=== PATIENT | male | born 1960 | race Caucasian/White ===

== ENCOUNTER 2019-08-20 10:57 | Inpatient (IN) | payer MEDICAID ==
[~2019-08-20] VITALS: Ht 170.2 cm; Wt 81.8 kg
[~2019-08-20 10:57] MED LIST: ASPI-1265 PO; ATOR40TA PO; BACL20TA PO; GABA-532 PO; HYDR-4383 PO; ISOS30TA9 PO; METO25TA6 PO; NABU500T2 PO; NAPR-1154 PO; NITR0.4T SL; TICA90TA PO; TRAM50TA2 PO
[2019-08-20 11:35] LABS: BASOPHILS % (AUTO) 0.4 % (0-1); EOSINOPHILS % (AUTO) 0.1 % (0-6); HEMATOCRIT 46.2 % (42.0-52.0); HEMOGLOBIN 15.3 g/dl (14.0-17.9); LYMPHOCYTES # (AUTO) 1.1 X10'3 (1.1-4.8); LYMPHOCYTES % (AUTO) 10.9 % (21-51); MEAN CORPUSCULAR HEMOGLOBIN 30.4 PG (27.0-31.0); MEAN CORPUSCULAR HGB CONC 33.2 g/dL (33.0-36.5); MEAN CORPUSCULAR VOLUME 91.6 FL (78-98); MEAN PLATELET VOLUME 8.9 FL (7.4-10.4); MONOCYTES # (AUTO) 0.5 X10'3 (0-0.9); NEUTROPHILS # (AUTO) 8.2 X10'3 (1.8-7.7); NEUTROPHILS % (AUTO) 83.6 % (42-75); PLATELET COUNT 313 X10'3 (140-440); RED BLOOD COUNT 5.05 X10'6 (4.70-6.10); RED CELL DISTRIBUTION WIDTH 15.2 % (11.5-14.5); WHITE BLOOD COUNT 9.8 X10'3 (4.5-11.0)
[2019-08-20 11:56] LABS: PARTIAL THROMBOPLASTIN TIME 25 SECONDS (22-32)
[2019-08-20 12:00] LABS: ALANINE AMINOTRANSFERASE 56 U/L (12-78); ALBUMIN 3.9 G/DL (3.4-5.0); ALKALINE PHOSPHATASE 84 IU/L (46-116); ANION GAP 8 (8-16); ASPARTATE AMINO TRANSFERASE 32 U/L (10-37); BILIRUBIN,TOTAL 2.2 MG/DL (0.1-1.0); BLOOD UREA NITROGEN 17 MG/DL (7-18); BUN/CREATININE RATIO 8.5 (5.4-32.0); CHLORIDE 103 MMOL/L (99-107); CREATININE 1.99 MG/DL (0.60-1.10); GLUCOSE 94 MG/DL (70-104); POTASSIUM 4.5 MMOL/L (3.5-5.1); SODIUM 136 MMOL/L (135-145); TOTAL CARBON DIOXIDE 25.2 MMOL/L (24-32); TOTAL PROTEIN 7.8 G/DL (6.4-8.2); eGFR 35 ML/MIN
[2019-08-20] MEDS ORDERED: normal saline 1000ML IV soln IVB ONE ×2 (13:00→13:20)
--- NOTE | 2019-08-20 13:19 | NUR ---
covering for assisgned nurse .pt iv started infusing as per md orders.dr motley at bedside explaining the plan of care.pt denies any concern at this time.
[2019-08-20] MEDS ORDERED: CLOP75TA35 PO (13:45)
[2019-08-20] MEDS ORDERED: LEVA15HF6 INH (13:45)
[2019-08-20] MEDS ORDERED: LORA-660 PO (13:45)
[2019-08-20] MEDS ORDERED: ACET-1008 PO (13:47)
[2019-08-20] MEDS ORDERED: normal saline 1000ml 1,000 ML IV SCH (13:58)
[2019-08-20] MEDS ORDERED: mag hydrox/Alum hydrox/simeth 30ml oral suspension PO PRN (14:00)
[2019-08-20] MEDS ORDERED: magnesium Cl slow-release 64mg tablet PO PRN (14:00)
[2019-08-20] MEDS ORDERED: morphine 2 MG/ML inj. syringe IV PRN ×2 (14:00)
[2019-08-20] MEDS ORDERED: diphenhydrAMINE 25mg capsule PO PRN (14:00)
[2019-08-20] MEDS ORDERED: magnesium 4gm in 100ml NS 100 ML IV PRN (14:00)
[2019-08-20] MEDS ORDERED: HYDROcodone/acetaminophen 10/325mg tab PO PRN (14:00)
[2019-08-20] MEDS ORDERED: acetaminophen 325mg tablet PO PRN ×2 (14:00)
[2019-08-20] MEDS ORDERED: ondansetron/PF 4mg/2ml inj IV PRN (14:00)
[2019-08-20] MEDS ORDERED: acetaminophen 650mg rectal suppository RC PRN (14:00)
[2019-08-20] MEDS ORDERED: HYDROcodone/acetaminophen 5mg/325mg tablet PO PRN (14:00)
[2019-08-20] MEDS ORDERED: magnesium 2GM in 50ml NS 50 ML IV PRN (14:00)
[2019-08-20] MEDS ORDERED: magnesium hydroxide 30ml (MOM) UD suspension PO PRN (14:00)
[2019-08-20] MEDS ORDERED: potassium Cl 20 mEq SR tablet PO PRN ×2 (14:00)
[2019-08-20] MEDS ORDERED: potassium CL 10mEq/100ml bag 100 ML IV PRN ×2 (14:00)
[2019-08-20] MEDS ORDERED: bisacodyl 10mg suppository rectal RC PRN (14:00)
--- NOTE | 2019-08-20 14:23 | NUR ---
pt came back from ct scan ,assisned nurse was busy with other pt .pt iv fluid started infusing as per md orders.
--- NOTE | 2019-08-20 15:45 | NUR ---
PT TO MRI
--- NOTE | 2019-08-20 16:43 | NUR ---
back from mri
--- NOTE | 2019-08-20 17:15 | NUR ---
PT BACK FROM MRI
[2019-08-20] MEDS ORDERED: heparin, porcine 5000 units/ml vial SQ SCH (20:00)
[2019-08-20] MEDS ORDERED: K and/or MAG REPLACEMENT MC SCH (20:00)
[2019-08-20] MEDS ORDERED: metoprolol tartrate 25mg tablet PO SCH (20:00)
[2019-08-20] MEDS ORDERED: AMIT75TA2 PO (20:50)
[2019-08-20] MEDS ORDERED: amitriptyline 25mg tablet PO ONE ×2 (20:55)
[2019-08-20] MEDS ORDERED: atorvastatin 20mg tablet PO ONE (20:55)
[2019-08-20] MEDS ORDERED: metoprolol tartrate 50mg tablet PO ONE (20:55)
[2019-08-20 23:42] VITALS: BP 131/90
[2019-08-21] MEDS ORDERED: clopidogrel 75mg tablet PO SCH (08:00)
[2019-08-21] MEDS ORDERED: loratadine 10mg tablet PO SCH (08:00)
[2019-08-21] MEDS ORDERED: aspirin 81mg tab.chew PO SCH (08:00)
[2019-08-21] MEDS ORDERED: isosorbide dinitrate 30mg tablet PO SCH (08:00)
[2019-08-21] MEDS ORDERED: atorvastatin 20mg tablet PO SCH (08:00)
== END 2019-08-21 00:50 | disposition short-term general hospital (02) | DRG 204 ==
LOC: ER 10:58 → ED HOLD 13:58 → UNDOADMIN 13:58 → ED HOLD 14:03 → UNDODISIN 08-21 00:50
PROVIDERS: ADMIT Family Medicine; ATTEND Family Medicine
DX: R55 Syncope and collapse (principal); G89.29 Other chronic pain; I25.10 Atherosclerotic heart disease of native coronary artery without angina pectoris; I25.2 Old myocardial infarction; J44.9 Chronic obstructive pulmonary disease, unspecified; Z95.5 Presence of coronary angioplasty implant and graft; M54.9 Dorsalgia, unspecified
CPT/HCPCS: 36415; 70450; 70544; 70547; 70551; 71045; 80053; 83036; 84484; 85025; 85610; 85730; 87635; 93005; 96360; 99285; G0378; J7030

== ENCOUNTER 2019-10-04 11:45 | Emergency (ER) | payer MEDICAID ==
[~2019-10-04] VITALS: Ht 170.2 cm; Wt 86.0 kg
[~2019-10-04 11:45] MED LIST changes: +ACET-1008 PO; +AMIT75TA2 PO; -BACL20TA PO; +CLOP75TA35 PO; -GABA-532 PO; -HYDR-4383 PO; +LEVA15HF6 INH; +LORA-660 PO; -NABU500T2 PO; -NAPR-1154 PO; -NITR0.4T SL; -TICA90TA PO; -TRAM50TA2 PO
[2019-10-04 12:16] VITALS: BP 127/75
[2019-10-04 14:35] LABS: BASOPHILS % (AUTO) 0.4 % (0-1); EOSINOPHILS # (AUTO) 0.2 X10'3 (0-0.9); EOSINOPHILS % (AUTO) 2.1 % (0-6); HEMATOCRIT 36.2 % (42.0-52.0); HEMOGLOBIN 11.9 g/dl (14.0-17.9); LYMPHOCYTES # (AUTO) 1.2 X10'3 (1.1-4.8); LYMPHOCYTES % (AUTO) 15.6 % (21-51); MEAN CORPUSCULAR HEMOGLOBIN 29.4 PG (27.0-31.0); MEAN CORPUSCULAR HGB CONC 32.7 g/dL (33.0-36.5); MEAN CORPUSCULAR VOLUME 89.8 FL (78-98); MEAN PLATELET VOLUME 9.1 FL (7.4-10.4); MONOCYTES # (AUTO) 0.5 X10'3 (0-0.9); MONOCYTES % (AUTO) 6.9 % (2-12); NEUTROPHILS # (AUTO) 5.9 X10'3 (1.8-7.7); PLATELET COUNT 285 X10'3 (140-440); RED BLOOD COUNT 4.03 X10'6 (4.70-6.10); RED CELL DISTRIBUTION WIDTH 16.2 % (11.5-14.5); WHITE BLOOD COUNT 7.8 X10'3 (4.5-11.0)
[2019-10-04 14:48] LABS: ALANINE AMINOTRANSFERASE 26 U/L (12-78); ALBUMIN 3.4 G/DL (3.4-5.0); ALBUMIN/GLOBULIN RATIO 0.9 (1.1-1.5); ALKALINE PHOSPHATASE 84 IU/L (46-116); ANION GAP 13 (8-16); ASPARTATE AMINO TRANSFERASE 20 U/L (10-37); BLOOD UREA NITROGEN 13 MG/DL (7-18); BUN/CREATININE RATIO 17.1 (5.4-32.0); CALCIUM 8.6 MG/DL (8.5-10.1); CHLORIDE 107 MMOL/L (99-107); CREATININE 0.76 MG/DL (0.60-1.10); GLUCOSE 92 MG/DL (70-104); POTASSIUM 3.9 MMOL/L (3.5-5.1); SODIUM 142 MMOL/L (135-145); TOTAL CARBON DIOXIDE 22.3 MMOL/L (24-32); TOTAL PROTEIN 7.2 G/DL (6.4-8.2); eGFR > 90 ML/MIN
[2019-10-04 15:13] LABS: C-REACTIVE PROTEIN 1.71 MG/DL (0.0-0.5)
[2019-10-04] MEDS ORDERED: HYDR-3965 PO (16:02)
== END 2019-10-04 17:01 | disposition home or self-care (01) ==
LOC: ER 11:46
DX: R22.0 Localized swelling, mass and lump, head (principal); R51 Headache; I25.10 Atherosclerotic heart disease of native coronary artery without angina pectoris; I25.2 Old myocardial infarction; J44.9 Chronic obstructive pulmonary disease, unspecified; G89.29 Other chronic pain; Z98.890 Other specified postprocedural states; Z79.82 Long term (current) use of aspirin; Z79.899 Other long term (current) drug therapy
CPT/HCPCS: 36415; 70450; 80053; 85025; 85651; 86140; 99284

== ENCOUNTER 2020-03-19 11:47 | Inpatient (IN) | payer MEDICAID ==
[~2020-03-19] VITALS: Ht 170.2 cm; Wt 81.8 kg
[~2020-03-19 11:47] MED LIST changes: +LORA-657 PO; -LORA-660 PO
[2020-03-19] MEDS ORDERED: aspirin 81mg tab.chew PO ONE (12:25)
[2020-03-19 12:52] LABS: BASOPHILS # (AUTO) 0.1 X10'3 (0-0.2); BASOPHILS % (AUTO) 0.5 % (0-1); EOSINOPHILS % (AUTO) 0.1 % (0-6); HEMATOCRIT 47.2 % (42.0-52.0); HEMOGLOBIN 15.5 g/dl (14.0-17.9); LYMPHOCYTES # (AUTO) 0.8 X10'3 (1.1-4.8); LYMPHOCYTES % (AUTO) 7.6 % (21-51); MEAN CORPUSCULAR HEMOGLOBIN 29.9 PG (27.0-31.0); MEAN CORPUSCULAR HGB CONC 32.9 g/dL (33.0-36.5); MEAN CORPUSCULAR VOLUME 90.8 FL (78-98); MEAN PLATELET VOLUME 9.6 FL (7.4-10.4); MONOCYTES # (AUTO) 0.9 X10'3 (0-0.9); MONOCYTES % (AUTO) 8.1 % (2-12); NEUTROPHILS # (AUTO) 9.2 X10'3 (1.8-7.7); NEUTROPHILS % (AUTO) 83.7 % (42-75); PLATELET COUNT 254 X10'3 (140-440); RED CELL DISTRIBUTION WIDTH 16.1 % (11.5-14.5)
[2020-03-19 13:01] LABS: PARTIAL THROMBOPLASTIN TIME 24 SECONDS (22-32)
[2020-03-19 13:04] LABS: ALANINE AMINOTRANSFERASE 26 U/L (12-78); ALBUMIN 4.1 G/DL (3.4-5.0); ALKALINE PHOSPHATASE 96 IU/L (46-116); ANION GAP 11 (8-16); ASPARTATE AMINO TRANSFERASE 25 U/L (10-37); BILIRUBIN,TOTAL 1.6 MG/DL (0.1-1.0); BLOOD UREA NITROGEN 21 MG/DL (7-18); BUN/CREATININE RATIO 11.1 (5.4-32.0); CALCIUM 9.2 MG/DL (8.5-10.1); CHLORIDE 104 MMOL/L (99-107); GLUCOSE 70 MG/DL (70-104); POTASSIUM 4.5 MMOL/L (3.5-5.1); SODIUM 140 MMOL/L (135-145); TOTAL PROTEIN 8.1 G/DL (6.4-8.2); eGFR 36 ML/MIN
[2020-03-19 13:12] LABS: MAGNESIUM 2.4 MG/DL (1.5-2.4)
[2020-03-19] MEDS ORDERED: aspirin 325mg tablet PO ONE (13:55)
[2020-03-19] MEDS ORDERED: magnesium 4gm in 100ml NS 100 ML IV PRN (14:10)
[2020-03-19] MEDS ORDERED: ondansetron/PF 4mg/2ml inj IV PRN (14:10)
[2020-03-19] MEDS ORDERED: potassium Cl 20 mEq SR tablet PO PRN ×2 (14:10)
[2020-03-19] MEDS ORDERED: morphine 2 MG/ML inj. syringe IV PRN (14:10)
[2020-03-19] MEDS ORDERED: magnesium 2GM in 50ml NS 50 ML IV PRN (14:10)
[2020-03-19] MEDS ORDERED: potassium CL 10mEq/100ml bag 100 ML IV PRN ×2 (14:10)
[2020-03-19] MEDS ORDERED: magnesium Cl slow-release 64mg tablet PO PRN (14:10)
[2020-03-19] MEDS ORDERED: HYDROcodone/acetaminophen 5mg/325mg tablet PO PRN (14:10)
[2020-03-19] MEDS ORDERED: acetaminophen 325mg tablet PO PRN ×2 (14:10)
[2020-03-19] MEDS: normal saline 1000ml 1,000 ML IV SCH (14:55)
[2020-03-19 15:38] LABS: URINE AMPHETAMINE SCREEN NEGATIVE (Neg); URINE BARBITUATE SCREEN NEGATIVE (Neg); URINE BENZODIAZEPINES SCREEN NEGATIVE (Neg); URINE CANNABINOID SCREEN NEGATIVE (Neg); URINE COCAINE SCREEN NEGATIVE (Neg); URINE METHADONE SCREEN NEGATIVE (Neg); URINE OPIATE SCREEN NEGATIVE (Neg); URINE PHENCYCLIDINE SCREEN NEGATIVE (Neg)
[2020-03-19] MEDS ORDERED: LISI10TA4 PO (15:41)
--- NOTE | 2020-03-19 15:54 | NUR ---
attempted to call report, EHSAN Clancy off floor.
--- NOTE | 2020-03-19 16:16 | NUR ---
Patient in room PCU 3028. I have received report from EHSAN KUMARI FROM ER and had the opportunity to ask questions and assume patient care.
[2020-03-19 18:00] VITALS: BP 123/71
--- NOTE | 2020-03-19 18:20 | NUR ---
Problems reprioritized. Patient report given, questions answered & plan of care reviewed with EHSAN CHEUNG.
[2020-03-19] MEDS: K and/or MAG REPLACEMENT MC SCH (19:20)
[2020-03-19] MEDS: heparin, porcine 5000 units/ml vial SQ SCH (19:25)
[2020-03-19] MEDS: docusate sod 100mg capsule PO SCH (19:28)
[2020-03-19 20:00] VITALS: BP_SYST 105; BP_SYST 88; BP_SYST 90; BP_DIAS 56; BP_DIAS 61; BP_DIAS 64
[2020-03-19 22:00] VITALS: BP 105/64
[2020-03-20] VITALS (14 sets, daily range): BP systolic 100–128; BP diastolic 55–80
[2020-03-20] MEDS: normal saline 1000ml 1,000 ML IV SCH (04:28)
[2020-03-20 06:31] LABS: HEMATOCRIT 39.4 % (42.0-52.0); HEMOGLOBIN 13.4 g/dl (14.0-17.9); MEAN CORPUSCULAR HEMOGLOBIN 30.8 PG (27.0-31.0); MEAN CORPUSCULAR HGB CONC 34.1 g/dL (33.0-36.5); MEAN CORPUSCULAR VOLUME 90.3 FL (78-98); MEAN PLATELET VOLUME 9.9 FL (7.4-10.4); PLATELET COUNT 215 X10'3 (140-440); RED BLOOD COUNT 4.36 X10'6 (4.70-6.10); RED CELL DISTRIBUTION WIDTH 15.8 % (11.5-14.5); WHITE BLOOD COUNT 6.6 X10'3 (4.5-11.0)
--- NOTE | 2020-03-20 06:33 | NUR ---
Problems reprioritized. Patient report given, questions answered & plan of care reviewed with EHSAN Hernandes.
[2020-03-20 06:36] LABS: ALANINE AMINOTRANSFERASE 21 U/L (12-78); ALBUMIN/GLOBULIN RATIO 0.9 (1.1-1.5); ALKALINE PHOSPHATASE 78 IU/L (46-116); ANION GAP 7 (8-16); ASPARTATE AMINO TRANSFERASE 17 U/L (10-37); BILIRUBIN,TOTAL 0.6 MG/DL (0.1-1.0); BLOOD UREA NITROGEN 31 MG/DL (7-18); BUN/CREATININE RATIO 26.1 (5.4-32.0); CALCIUM 8.4 MG/DL (8.5-10.1); CHLORIDE 110 MMOL/L (99-107); CHOL/HDL RATIO 3.5 (0.00-4.99); CHOLESTEROL 133 MG/DL (0-200); CREATININE 1.19 MG/DL (0.60-1.10); GLUCOSE 88 MG/DL (70-104); HDL CHOLESTEROL 38 MG/DL (35-60); LDL CHOLESTEROL 75 MG/DL (50-100); MAGNESIUM 1.9 MG/DL (1.5-2.4); SODIUM 144 MMOL/L (135-145); TOTAL CARBON DIOXIDE 27.2 MMOL/L (24-32); TOTAL PROTEIN 6.3 G/DL (6.4-8.2); TRIGLYCERIDES 96 MG/DL (20-135); eGFR 62 ML/MIN
[2020-03-20] MEDS: docusate sod 100mg capsule PO SCH (08:00)
[2020-03-20] MEDS: K and/or MAG REPLACEMENT MC SCH (08:00)
[2020-03-20] MEDS: heparin, porcine 5000 units/ml vial SQ SCH (10:26)
[2020-03-20] MEDS ORDERED: regadenoson 0.4mg/5ml syringe IV ONE (13:45)
[2020-03-20] MEDS ORDERED: aminophylline inj. 10 ML IV ONE (13:48)
[2020-03-20] MEDS ORDERED: regadenoson 0.4mg/5ml syringe IV PRN (13:50)
--- NOTE | 2020-03-20 15:20 | NUR ---
PAGER ID: [phone] MESSAGE: [id number] [place] stress test done, can I feed him? ambulatory in room [address]
[2020-03-20] MEDS ORDERED: OMEP20CA15 PO (15:42)
== END 2020-03-20 17:27 | disposition home or self-care (01) | DRG 422 ==
LOC: ER 11:47 → ED HOLD 14:10 → EDBEDREQ 15:29 → PCU 3S 16:40
PROVIDERS: ADMIT Internal Medicine; ATTEND Internal Medicine
PROC: 4A02XM4 Measurement of Cardiac Total Activity, External Approach (ICD-10-PCS; principal; 2020-03-20)
PROC: 3E033HZ Introduction of Radioactive Substance into Peripheral Vein, Percutaneous Approach (ICD-10-PCS; 2020-03-20)
DX: E86.0 Dehydration (principal); R07.89 Other chest pain; F17.210 Nicotine dependence, cigarettes, uncomplicated; I25.10 Atherosclerotic heart disease of native coronary artery without angina pectoris; J44.9 Chronic obstructive pulmonary disease, unspecified; M19.90 Unspecified osteoarthritis, unspecified site; N18.30 Chronic kidney disease, stage 3 unspecified; Z79.02 Long term (current) use of antithrombotics/antiplatelets; I25.2 Old myocardial infarction; Z79.82 Long term (current) use of aspirin
CPT/HCPCS: 36415; 70450; 71045; 78452; 80053; 80061; 80305; 83735; 83880; 84484; 85025; 85027; 85610; 85651; 85730; 87081; 93005; 93017; 93306; 96372; 99285; A9500; G0378; J0280; J1644; J2785; J7030